=== PATIENT | male | born 1995 | race Caucasian/White ===

== ENCOUNTER 2024-12-02 04:11 | Emergency (ER) | payer BC, SELFPAY ==
[2024-12-02] VITALS (16 sets, daily range): BP systolic 102–151; BP diastolic 65–115; BMI 28.8
[2024-12-02 05:35] LABS: % Basophils 0.5 % (0-2); % Eosinophils 0.6 % (0-6); % Immature Granulocytes 0.2 % (0-0.5); % Lymphocytes 27.4 % (20.5-51.1); % Monocytes 6.6 % (1.7-9.3); % Neutrophils 64.7 % (42.2-75.2); Absolute Lymphocytes 1.7 10^3/uL (1.2-3.4); Absolute Monocytes 0.4 10^3/uL (0.1-0.6); Absolute Neutrophils 4.1 10^3/uL (1.4-6.5); Hematocrit 49.5 % (39.0-52.0); Hemoglobin 17.4 g/dL (13.0-18.0); Mean Corp Hgb Conc. 35.2 g/dL (33.0-37.0); Mean Corpuscular Hgb 28.6 pg (27.0-31.0); Mean Corpuscular Volume 81.4 fL (80.0-94.0); Mean Platelet Volume 9.6 fL (7.4-10.4); Nucleated Red Blood Cells % 0 % (-); Platelet Count 183 10^3/uL (130-400); Red Blood Cell Count 6.08 10^6/uL (4.70-6.10); Red Cell Dist. Width 12.5 % (11.5-14.5); White Blood Cell Count 6.3 10^3/uL (4.8-10.8)
[2024-12-02] MEDS: CARDIZEM 20 MG IV (05:44)
[2024-12-02] MEDS: NSS 1000 IV (05:45)
[2024-12-02] MEDS: CARDIZEM 125 IV (05:45)
[2024-12-02 05:59] LABS: ALT (SGPT) 33 U/L (0-50); AST (SGOT) 29 U/L (17-59); Alkaline Phosphatase 112 U/L (38-126); Blood Urea Nitrogen 13 mg/dl (9-20); Calcium 9.4 mg/dl (8.4-10.2); Carbon Dioxide 25 mmol/L (22-30); Chloride 112 mmol/L (98-107); Estimated Creatinine Clearance 113 ml/min; Glucose 98 mg/dl (70-99); Potassium 4.4 mmol/L (3.5-5.1); Sodium 146 mmol/L (135-145); Total Bilirubin 3.5 mg/dl (0.2-1.3); Total Protein 7.7 g/dl (6.3-8.2); eGFR > 60.00
--- NOTE | 2024-12-02 06:14 | ED.GENMED ---
History of Present Illness
<Edwige Lopez DO - Last Filed: 12/02/24 07:30>
General
Chief Complaint: Heart Rate Problem
Source: patient and spouse
Exam Limitations: none
Time Seen by Provider: 12/02/24 05:28
Nursing documentation reviewed up to this point in time: agreed with except (Palpitations began at 3:00 in the morning. Not 3 PM.)
History of Present Illness
History of Present Illness:
This is a 29-year-old gentleman who has history of PAF that began as a teenager. He follows with a routeman as well as an button maker. He takes no medicines on a daily basis. He states A-fib episodes are quite rare with last episode
approximately 2 years ago. A-fib episodes are generally short-lived, resolve within an hour. He has required previous ED visits and only 1 episode required IV medication to spontaneously convert. He has never required electrical cardioversion.
He complains of palpitations waking him from sleep around 3:00 this morning. No other associated symptoms. No dizziness nor lightheadedness, no chest pain, no cough no shortness of breath, no diaphoresis. Palpitations persisted thus he brought
himself to the ED.
Past History
<Edwige Lopez DO - Last Filed: 12/02/24 07:30>
Past History
ED Past Medical History: Arrthythmia (Paroxysmal atrial fibrillation since teenager)
ED Past Surgical History: Orthopedic
Social History
Tobacco: Non-smoker
Alcohol: Occasional
Drug: None
Personal: Single
Living: with family
Employment: Employed
Family History
Family History: Other (Noncontributory)
Phy Exam
<Edwige Lopez DO - Last Filed: 12/02/24 07:30>
Physical Exam
Physical Exam:
GENERAL: Alert , in no apparent distress
EYE: pupils equal and reactive
NECK: Supple, no significant adenopathy.
ENT: o/p clr, mmm.
CARDIAC: Irregularly irregular, tachycardic
LUNGS: Clear breath sounds bilaterally, no acute respiratory distress,
ABDOMEN: Soft, without focal tenderness, no r/g, no cvat
NEUROLOGICAL: Alert and oriented, no focal neuro deficits
SKIN: Warm and dry, skin intact.
MUSCULOSKELETAL: No edema, well perfused.
PSYCH: Normal and appropriate interaction.
Course
<Edwige Lopez, DO - Last Filed: 12/02/24 07:30>
Orders/Labs/Results
Orders:
Orders
12/02/24 04:12
EKG [Electrocardiogram (*1)] Urgent
Reason for Study: Palpitations
EKG- Treatment ONCE
12/02/24 04:26
Electrocardiogram (*1) Urgent
Reason for Study: Atrial Fibrillation
12/02/24 04:27
EKG- Treatment ONCE
12/02/24 05:20
Complete Blood Count/With Diff Urgent
Comprehensive Metabolic Panel Urgent
12/02/24 05:29
0.9% Sodium Chloride 1000 ml [Nss] 1,000 ml IV BOLUS
Diltiazem 125 mg/125 ml Nss [Cardizem] 125 mg in 125 ml IV NOW
Initial dose in mg/hr, then titrate:: 5
Titrate to keep:: Heart rate 80-100 bpm
Titrate by mg/hr:: 5 mg/hr
Frequency of titrations (minutes):: 15
Maximum dose in mg/hr:: 15
Diltiazem HCl [Cardizem] 20 mg IV NOW STA
12/02/24 06:36
Diltiazem HCl [Cardizem] 25 mg IV NOW STA
12/02/24 09:48
Diltiazem Extended Release [Cardizem Cd] 120 mg PO NOW STA
Abnormal Lab Results
12/02/24
05:20
Sodium 146 H mmol/L
(135-145)
Chloride 112 H mmol/L
(98-107)
Total Bilirubin 3.5 H mg/dl
(0.2-1.3)
12/02/24 05:20
12/02/24 05:20
Vital Signs
Initial and Last Documented VS:
Initial Vital Signs
Temp Pulse Resp BP Pulse Ox
98.3 F 162 20 150/91 100
12/02/24 04:18 12/02/24 04:18 12/02/24 04:18 12/02/24 04:18 12/02/24 04:18
Last Documented Vital Signs
Temp Pulse Resp BP Pulse Ox
98.3 F 97 15 109/76 99
12/02/24 04:18 12/02/24 12:00 12/02/24 12:00 12/02/24 11:00 12/02/24 12:00
simeon;Celestine Benson DO - Last Filed: 12/06/24 22:51>
Orders/Labs/Results
Orders:
Orders
12/02/24 04:12
EKG [Electrocardiogram (*1)] Urgent
Reason for Study: Palpitations
EKG- Treatment ONCE
12/02/24 04:26
Electrocardiogram (*1) Urgent
Reason for Study: Atrial Fibrillation
12/02/24 04:27
EKG- Treatment ONCE
12/02/24 05:20
Complete Blood Count/With Diff Urgent
Comprehensive Metabolic Panel Urgent
12/02/24 05:29
0.9% Sodium Chloride 1000 ml [Nss] 1,000 ml IV BOLUS
Diltiazem 125 mg/125 ml Nss [Cardizem] 125 mg in 125 ml IV NOW
Initial dose in mg/hr, then titrate:: 5
Titrate to keep:: Heart rate 80-100 bpm
Titrate by mg/hr:: 5 mg/hr
Frequency of titrations (minutes):: 15
Maximum dose in mg/hr:: 15
Diltiazem HCl [Cardizem] 20 mg IV NOW STA
12/02/24 06:36
Diltiazem HCl [Cardizem] 25 mg IV NOW STA
12/02/24 09:48
Diltiazem Extended Release [Cardizem Cd] 120 mg PO NOW STA
Abnormal Lab Results
12/02/24
05:20
Sodium 146 H mmol/L
(135-145)
Chloride 112 H mmol/L
(98-107)
Total Bilirubin 3.5 H mg/dl
(0.2-1.3)
12/02/24 05:20
12/02/24 05:20
Vital Signs
Initial and Last Documented VS:
Initial Vital Signs
Temp Pulse Resp BP Pulse Ox
98.3 F 162 20 150/91 100
12/02/24 04:18 12/02/24 04:18 12/02/24 04:18 12/02/24 04:18 12/02/24 04:18
Last Documented Vital Signs
Temp Pulse Resp BP Pulse Ox
98.3 F 97 15 109/76 99
12/02/24 04:18 12/02/24 12:00 12/02/24 12:00 12/02/24 11:00 12/02/24 12:00
<Edwige Lopez, DO - Last Filed: 12/02/24 07:30>
MDM/Problems Addressed
Differential Diagnosis Includes:
Patient presents with palpitations and EKG notes atrial fibrillation with rapid ventricular response.
Hemodynamically stable and offers no other complaints other than feeling his heart racing.
Will initiate IV Cardizem bolus and drip for rate control and will continue to monitor. According to patient he generally spontaneously converts to normal sinus rhythm quite readily.
If he does not spontaneously convert despite controlling heart rate, could consider discontinuing Cardizem and trial of IV Pronestyl bolus.
Routine labs are pending.
Patient reports no history of thyroid disorder and follows with an button maker. No indication to test TSH at this point.
Chronic conditions affecting care: Arrhythmia
Acute Exacerbation and/or Progression of Chronic Illness: Arrhythmia
<Edwige Lopez, DO - Last Filed: 12/02/24 07:30>
*Pulse Oximetry
Patient hypoxic: no
*EKG
Interpreted by ED Provider?: Yes
Interpretation: abnormal
Comparison EKG: no comparison EKG present
Rate: tachycardiac
Rhythm: a-fib
[place]: normal axis
Interval: normal QT interval
QRS Pattern: normal QRS
Ischemia: no ischemia
*Electric Operator Interpretation
Rate: tachycardiac
Interpretation: abnormal
Rhythm: a-fib
<Celestine Benson, DO - Last Filed: 12/06/24 22:51>
*Critical Care Note
Total Time (30-74mins, 75-104mins- exclusive of procedures): Not Applicable
<Edwige Lopez, DO - Last Filed: 12/02/24 07:30>
Update Note
Update Note:
07:15
Patient remains hemodynamically stable.
Cardizem bolus and drip initiated with additional bolus and titration of drip.
A-fib now with controlled ventricular response in the 80s.
Will continue to observe.
<Celestine Benson, DO - Last Filed: 12/06/24 22:51>
Update Note
Update Note:
07:15
Patient remains hemodynamically stable.
Cardizem bolus and drip initiated with additional bolus and titration of drip.
A-fib now with controlled ventricular response in the 80s.
Will continue to observe.
Ultimately patient did not convert to sinus rhythm. He did however have adequate rate control. He was converted from IV Cardizem to oral Cardizem. I discussed patient's presentation with Dr. Emilee Jackson. Will have the patient follow-up with
electrophysiology here at [facility].
ED Attending Note
<Edwige Lopez DO - Last Filed: 12/02/24 07:30>
-
Portions of this chart may have been created with voice recognition software.� Occasional wrong word or��sound alike� substitutions may have occurred due to the inherent limitations of voice recognition software.
Discharge Plan
Departure
Patient Disposition: Home (Routine Discharge)
Date of Disposition: 12/02/24
Time of Disposition: 12:11
Patient with high blood pressure during this ER visit?: No
Condition: Good
Discharge Problem:
Paroxysmal atrial fibrillation with rapid ventricular response
Instructions: Atrial Fibrillation (DC)
Prescriptions:
New
diltiazem HCl [Cardizem CD] 120 mg capsule,extended release 24hr
120 mg PO DAILY Qty: 30 0RF
Referrals:
Sima Schulz MD [Active, Cardiology]
Sanjuana Guerra DO [Family Provider, Family Practice]
Activity Restrictions/Additional Instructions:
You came to the emergency room today with a rapid heart rate and you were found to have atrial fibrillation. We have controlled your heart rate with Cardizem. We anticipate you will convert to normal sinus rhythm in the next couple days. Please
contact Dr. Schulz's office today to make an appointment. Let the office staff know you were seen in the emergency room for atrial fibrillation and that you need an appointment with Dr. Schulz. I have sent a prescription for Cardizem which she
can take once a day.
Interventions
Interventions:
*Risk Screen - Suicide Last Done: 12/02/24 04:18
*General Assessment Last Done: 12/02/24 04:18
*Neglect/Abuse Screening Last Done: 12/02/24 04:18
*ED- Fall Risk Assessment Last Done: 12/02/24 04:31
*ED COVID-19 Vaccine History Last Done: 12/02/24 04:18
*Nursing Disposition Last Done: 12/02/24 12:30
ED- Cardiac Assessment Last Done: 12/02/24 05:31
ED- Pulmonary Assessment Last Done: 12/02/24 05:31
Discharge Date and Time
Discharge Date/Time: 12/02/24 12:30
Print Language: ESTONIAN
[2024-12-02] MEDS: CARDIZEM 25 MG IV (07:00)
--- NOTE | 2024-12-02 09:22 | EDRN ---
Dr. Benosn in room w/ pt at this time.
[2024-12-02] MEDS: CARDIZEM CD 120 MG PO (10:06)
--- NOTE | 2024-12-02 10:57 | EDRN ---
Pt remains in A Fib. At 9:[address] Benson that cardizem was discontinued per plan of doing so 30 min after pt was administered cardizem po.
--- NOTE | 2024-12-02 11:50 | EDRN ---
Pt remains in A Fib w/ rate in the 90's at this time.
== END 2024-12-02 12:30 | disposition home or self-care (01) ==
LOC: EMR 04:11
PROVIDERS: EMERGENCY PHYSICIAN Emergency Medicine; FAMILY PHYSICIAN Family Medicine
DX: I48.0 Paroxysmal atrial fibrillation (principal)
CPT/HCPCS: 99284; 96374; 96361; 96376; 80053; 85025; 93005

== ENCOUNTER 2024-12-30 11:05 | Day surgery (SDC) | payer BC, SELFPAY ==
[2024-12-13 12:44] VITALS: BMI 27.7
[2024-12-30] VITALS (11 sets, daily range): BP systolic 100–151; BP diastolic 59–86; BMI 28.0
[2024-12-30 15:45] LABS: ACT-LR - POC 366 Seconds (116-155)
[2024-12-30 16:00] LABS: ACT-LR - POC 345 Seconds (116-155)
[2024-12-30 16:22] LABS: ACT-LR - POC 343 Seconds (116-155)
--- NOTE | 2024-12-30 16:29 | ITS.CL.ABL ---
Emotional Disabilities Teacher - Ablation
Ablation
Procedure Report:
AFIB ablation:
Mr. Aragon is a very pleasant 29 yr old gentleman with medical history significant for symptomatic paroxysmal atrial fibrillation is here in the EP lab for atrial fibrillation ablation
Date of Procedure:
12/30/2024
Indications:
Symptomatic paroxysmal atrial fibrillation
Pre-Operative Diagnosis:
Paroxysmal atrial fibrillation
Post-Operative Diagnosis:
Paroxysmal atrial fibrillation
Procedure Performed:
Atrial fibrillation ablation with wide area circumferential ablation (WACA) approach for pulmonary vein isolation
Performing Physician:
Sima Schulz MD
Assistants:
EP staff
Anesthesia:
See anesthesia records
Detailed Description of the Procedure:
Written informed consent was obtained from the patient after a full explanation of the risks and benefits of the procedure including the risks of sedation and anesthesia.
The patient was brought to the electrophysiology laboratory in stable condition in fasting state. Continuous electrocardiographic and hemodynamic monitoring was initiated.
The initial rhythm was sinus rhythm.
The procedure site was meticulously prepared with surgical scrub and allowed to dry with no pooling. Sterile draping was applied to cover the procedure site. The image intensifier was draped with sterile bag and positioned over the patient. After
infusion of local anesthetic, vascular access was obtained under ultrasound guidance and sheaths were placed over guide wire as detailed below.
The images of the ultrasound of the femoral vessels were stored in patient chart.
Sheath and Catheter Placement:
In the right femoral vein, a 10-Bel[place]ian sheath was placed under ultrasound guidance for use during the ablation procedure. In the right femoral vein, another 9-Fr sheath was placed for use during intracardiac echo procedure.
The sheaths were upgraded as needed during the case. Intracardiac catheters were positioned using direct fluoroscopic guidance.� ICE catheter was placed in RA. The following catheters / sheaths were placed
Sheaths:
��������� Agilis sheath in right femoral vein upgraded from 10Fr in right femoral vein
��������� 9Fr in right femoral vein
��������� 7Fr in right femoral vein
Catheters:
��������� The Affera Sphere 9 catheter -bidirectional D/F� - at locations of HRA, LA and LV.
��������� ICE catheter -AccuNav -� at locations of RA, SVC, and RV.
��������� Decapolar catheter in RA and CS
Heparin was initiated after the access was obtained.
Intracardiac ECHO:
An 8-[place]ian AcuNav intracardiac ECHO (ICE) probe was advanced through the 9-[place]ian sheath in the left femoral vein into the right atrium under fluoroscopic and ICE ultrasound image guidance and a baseline ECHO study was performed. The left atrial
size was mildly dilated. There was trace tricuspid regurgitation. The aortic valve was grossly normal. There was normal left ventricular size and function. There is no pericardial effusion. The MEIR has baseline normal velocities. The pulmonary had
good flow identified.
During the procedure, ICE was used for monitoring of complications, guidance of trans-septal puncture, monitor the catheter position and tracking ablation lesions. No change in the pericardial space noted throughout the procedure.
Trans-septal Puncture:
Heparin was initiated and infused to maintain appropriate ACT. A J-tipped guidewire was advanced through into the superior vena cava under fluoroscopic and ICE guidance. The Agilis sheath with BRK needle was advanced into the superior vena cava over
the guidewire. The apparatus was withdrawn until it was in contact with the fossa ovalis. The position was adjusted based on fluoroscopy and ultrasound images from ICE. Under fluoroscopic, hemodynamic and ICE ultrasound guidance, left atrium was
cannulated by advancing the needle. Once atrial septum was cannulated, the needle was pulled back and the guide wire was advanced through the needle into the left atrium. The guide wire was advanced into the left superior pulmonary vein. Both the
sheath and the dilator was advanced into the left atrium. The dilator with the needle was withdrawn. Blood was aspirated from the Agilis sheath and arterial blood confirmed. The sheath was flushed. Saline injection noted into the left atrium on ICE.
The waveform of the LA pressure was recorded. The mapping catheter was advanced in the Agilis sheath into the left pulmonary vein.
3D Electroanatomic Mapping:
Using the Sphere 9 Affera catheter advanced through Agilis sheath into the left atrium, an electroanatomic map (EAM) of the left atrium was created using XMLAWa� mapping system with Prism-1 software. The map was used for localization of catheter
position and tacking of ablation lesions. The EAM of the left atrium showed a total of 4 PVs with a two left and two right sided pulmonary veins with all electrically connected to the body the LA. It showed no significant scar on the posterior wall
of the LA. The LA was dilated in size.
Following the EAM, preparation were made for ablation.
Ablation:
Ablation # 2: Pulmonary vein Isolation:
Glycopyrrolate 0.2 mg was given prior to the placement of ablation.
Pulsed field ablation was performed using an open irrigation, bidirectional, contact sensing, dual energy ablation catheter ([employer] sphere -9) by completing the circumferential lesions around the left and right pulmonary veins achieving pulmonary
vein isolation.
Confirmation of the PVI and bidirectional block:
Following achievement of entrance block at the pulmonary veins, pacing from the Sphere 9 affera catheter in each of the four veins at 20 milliamps for 4 milliseconds showed entrance and exit block.
The LA was mapped with The XMLAWa� mapping system with Prism-1 software in sinus rhythm confirming the line of block at the ablation lesions lines.
�
EP study:
Sinus Node Function: The sinus node functions are within acceptable normal range.
Atrioventricular Kimberli Function: �Normal AV conduction noted with normal AV kimberli conduction time.
The RV pacing showed concentric conduction. No sign of accessory pathway noted. No SVT induced.
Procedure End
ICE study was done again that showed no epicardial accumulation. No complications noted.
Following the completion of the EP study, catheters were removed. Protamine 40 mg was given at the end of the procedure and ACT was checked repeatedly. The sheaths were removed and hemostasis achieved with VASCADE and manual compression after
acceptable ACT is achieved.
Left atrial Pressure:
Pre-Procedure: Mean LA pressure was 9mmHg
Post-Procedure: Mean LA pressure was 11mmHg
Estimated Blood loss:
<10 cc
Specimens Removed:
None.
Implants / Devices:
None
Urine output:
None
Packs / Drains/ Tubes:
None
Instrument / Sponge Count Correct:
Yes
Complications of the Procedure:
None
Condition of Patient at Time of Transfer:
Hemodynamically stable with no neurological or vascular compromise.
Summary:
��������� Successful atrial fibrillation ablation with circumferential bidirectional line of block at pulmonary vein antra (Pulmonary vein isolation)
Figures from the Procedure:
Figure 1: The electroanatomic mapping (EAM) of the left atrium with bipolar voltage (purple indicates normal electrical activity with red as no myocardial muscle electric activity indicating a line of block or scar.
[2024-12-30] MEDS: ZOFRAN 4 MG IV (17:33)
== END 2024-12-30 17:15 | disposition home or self-care (01) ==
LOC: CATH 11:05
PROVIDERS: ATTENDING PHYSICIAN Internal Medicine Cardiovascular Disease; FAMILY PHYSICIAN Family Medicine
DX: I48.0 Paroxysmal atrial fibrillation (principal); R00.2 Palpitations; R06.02 Shortness of breath
CPT/HCPCS: 93655; C1733; C1769; C1894; C1730; C1766; C1892; C1759; 36415; 85347; 86850; 86900; 86901; 93005; 93656; 93657; C1760

== ENCOUNTER → 2025-01-04 07:47 | Outpatient (REF) | payer BC, SELFPAY | LOC: RCS 07:47 | PROVIDERS: ATTENDING PHYSICIAN Internal Medicine Cardiovascular Disease; FAMILY PHYSICIAN Family Medicine | DX: R00.2 Palpitations (principal); I48.0 Paroxysmal atrial fibrillation | CPT/HCPCS: 93306 ==

== ENCOUNTER 2025-05-03 22:38 | Emergency (ER) | payer BC, SELFPAY ==
[2025-05-03 22:44] VITALS: BP 174/103
[2025-05-03 23:12] VITALS: BMI 27.9
[2025-05-03 23:15] VITALS: BP 125/82
[2025-05-03 23:29] LABS: Hematocrit 47.2 % (39.0-52.0); Hemoglobin 16.2 g/dL (13.0-18.0); Mean Corp Hgb Conc. 34.3 g/dL (33.0-37.0); Mean Corpuscular Volume 80.7 fL (80.0-94.0); Nucleated Red Blood Cells % 0 % (-); Platelet Count 172 10^3/uL (130-400); Red Cell Dist. Width 13.0 % (11.5-14.5)
[2025-05-03 23:31] LABS: ALT (SGPT) 56 U/L (0-50); AST (SGOT) 50 U/L (17-59); Albumin 5.2 g/dl (3.5-5.0); Alkaline Phosphatase 98 U/L (38-126); Blood Urea Nitrogen 13 mg/dl (9-20); Calcium 9.6 mg/dl (8.4-10.2); Carbon Dioxide 25 mmol/L (22-30); Chloride 105 mmol/L (98-107); Estimated Creatinine Clearance > 125 ml/min; Glucose 126 mg/dl (70-99); Potassium 3.7 mmol/L (3.5-5.1); Sodium 142 mmol/L (135-145); Total Protein 8.0 g/dl (6.3-8.2); eGFR > 60.00
[2025-05-03 23:41] LABS: Troponin I < 0.012 ng/ml
[2025-05-04] VITALS: BP 120/84
--- NOTE | 2025-05-04 01:05 | ED.GENMED ---
History of Present Illness
General
Chief Complaint: Heart Rate Problem
Time Seen by Provider: 05/04/25 00:28
History of Present Illness
History of Present Illness:
29-year-old male with past medical history of A-fib status post ablation in December presenting to the emergency department for concern of episode of atrial fibrillation. Patient reports that it woke him up from sleep. He has not had any episodes of
atrial fibrillation since his recent ablation. Reports by the time he got to the hospital, feels that he converted to sinus rhythm. He takes Cardizem daily, however is off Eliquis. Denies associated chest pain or difficulty breathing. Denies
abdominal pain or GI symptoms. Denies fever or recent illness. Patient follows with Dr. Schulz from cardiology. Patient denies additional acute medical complaints
Past History
Past History
ED Past Medical History: Arrthythmia (Paroxysmal atrial fibrillation since teenager)
ED Past Surgical History: Orthopedic
Social History
Tobacco: Non-smoker
Alcohol: Occasional
Drug: None
Personal: Single
Living: with family
Employment: Employed
Family History
Family History: Other (Noncontributory)
Phy Exam
Physical Exam
Physical Exam:
General: Well-appearing, no clinical signs of dehydration, nontoxic and in no acute distress
HEENT: protecting airway
Neck: appears supple
CV: Normal heart rate, regular rhythm, no evidence of cyanosis
Resp: No accessory muscle use, no increased work of breathing, lungs clear to auscultation bilaterally
Abd: No distention
Extremities: No deformities, no swelling
Neuro: alert, no focal neurologic deficit
: deferred
Rectal: deferred
Psych: Normal affect
Skin: Intact
Scores
[id number] Score for Afib Stroke Risk
Age in Years (65=0, 65-74=1, >/=75=2): <65
Sex (Female=+1): Male
Congestive Heart Failure History (Yes=+1): No
Hypertension History (Yes=+1): No
Stroke/TIA/Thromboembolism History (Yes=+2): No
Vascular Disease History (Yes=+1): No
Diabetes Mellitus (Yes=+1): No
Score: 0
Anticoagulation Recommendations: Anticoagulation not indicated (as validated in nonvalvular afib). Consider anticoagulation irrespective of score in patients with HCM
Course
Orders/Labs/Results
Orders:
Orders
05/03/25 22:39
Electrocardiogram (*1) Urgent
Reason for Study: Other
Other Reason for Exam: Respiratory Distress
Cardiac Monitoring- Treatment ONCE
EKG- Treatment ONCE
IV Insert/Care/Rem.- Treatment PRN
CR Chest - 2 Views Urgent
Comment:
Reason For Exam: respiratory distress
O2 Therapy [RESP] Urgent
Titrate/Wean O2 to maintain O2 sat greater than (%): 93
Special Instructions: TO MAINTAIN CONTINUOUS O2 SATS >/= 93%
Pulse Ox/cont/shift [RESP] Urgent
Quantity: 1
Special Instructions: continuous pulse ox
05/03/25 23:05
Comprehensive Metabolic Panel Urgent
NT-proBNP Urgent
Troponin I Urgent
05/03/25 23:21
Complete Blood Count/With Diff Urgent
05/04/25 00:43
EKG [Electrocardiogram (*1)] Urgent
Reason for Study: Atrial Fibrillation
EKG- Treatment ONCE
Abnormal Lab Results
05/03/25
23:05
Glucose 126 H mg/dl
(70-99)
Total Bilirubin 3.3 H mg/dl
(0.2-1.3)
ALT 56 H U/L
(0-50)
Albumin 5.2 H g/dl
(3.5-5.0)
05/03/25 23:21
11/04/25 23:05
Vital Signs
Initial and Last Documented VS:
Initial Vital Signs
Temp Pulse Resp BP Pulse Ox
98.2 F 100 19 174/103 100
05/03/25 22:44 05/03/25 22:44 05/03/25 22:44 05/03/25 22:44 05/03/25 22:44
Last Documented Vital Signs
Temp Pulse Resp BP Pulse Ox
98.2 F 87 10 120/84 100
05/03/25 22:44 05/04/25 00:45 05/03/25 23:16 05/04/25 00:00 05/04/25 01:07
MDM/Problems Addressed
MDM/Problems Addressed:
29-year-old male with past medical history of atrial fibrillation status post ablation in December presenting for episode of A-fib. Vital signs on arrival significant for tachycardia and hypertension.
On exam, patient has converted to sinus rhythm, without any intervention. Blood pressure is also normalized. Repeat EKG shows normal sinus rhythm without acute evidence of ischemia. Labs obtained prior to my assessment, unremarkable. Normal
chest x-ray imaging. Patient currently with unremarkable cardiac and pulmonary exam and hemodynamic stability. Patient with a low [id number] 4, without current indication for Eliquis, particularly in the setting of normal sinus rhythm. Patient
has an appoint with his EP doctor on Friday. At this time feel stable for discharge with close follow-up with his commissioning engineer. Return precautions discussed and patient verbalized
*Pulse Oximetry
SaO2: 100
Oxygen Mode of Delivery: Room air
Patient hypoxic: no
*EKG
Interpreted by ED Provider?: Yes
EKG Intrepretation Date: 05/04/25
EKG Intrepretation Time: 01:10
Interpretation: abnormal
Comparison EKG: changes noted
Heart Rate: 169
Rate: tachycardiac
Rhythm: a-fib
[place]: normal axis
QRS Pattern: normal QRS
Ischemia: non-specific ST changes
*Critical Care Note
Total Time (30-74mins, 75-104mins- exclusive of procedures): Not Applicable
ED Attending Note
-
Portions of this chart may have been created with voice recognition software.� Occasional wrong word or��sound alike� substitutions may have occurred due to the inherent limitations of voice recognition software.
Discharge Plan
Departure
Patient Disposition: Home (Routine Discharge)
Date of Disposition: 05/04/25
Time of Disposition: 01:06
Patient with high blood pressure during this ER visit?: No
Condition: Good
Discharge Problem:
Atrial fibrillation
Instructions: Atrial Fibrillation (DC)
Prescriptions:
No Action
diltiazem HCl [Cardizem CD] 120 mg capsule,extended release 24hr
120 mg PO DAILY Qty: 30 0RF
Eliquis 5 mg Tablet
5 mg PO BID
Referrals:
Sima Schulz MD [Active, Cardiology]
Sanjuana Guerra DO [Family Provider, Family Practice]
Activity Restrictions/Additional Instructions:
You were seen in the emergency department for elevated heart rate
You were found to have atrial fibrillation, however converted to normal sinus rhythm without any medication. Please follow-up with your commissioning engineer.
Please follow-up closely with your primary care physician.
Return to the emergency department for any worsening of your symptoms, or any development of chest pain, difficulty breathing, abdominal pain with persistent vomiting and inability to tolerate food or liquid by mouth (concern for dehydration),
weakness, headache or confusion, fever greater than 100.4, or any additional symptoms that are concerning to you.
Thank you for choosing [facility].
Interventions
Interventions:
*Risk Screen - Suicide Last Done: 05/03/25 22:50
*General Assessment Last Done: 05/03/25 22:50
*Neglect/Abuse Screening Last Done: 05/03/25 22:50
*ED- Fall Risk Assessment Last Done: 05/03/25 23:13
*ED COVID-19 Vaccine History Last Done: 05/03/25 22:50
*ED Influenza Vaccine History Last Done: 05/03/25 22:50
ED- Cardiac Assessment Last Done: 05/03/25 23:14
ED- Pulmonary Assessment Last Done: 05/03/25 23:14
Discharge Date and Time
Print Language: TURKISH
== END 2025-05-04 01:22 | disposition home or self-care (01) ==
LOC: EMR 22:38
PROVIDERS: Student in an Organized Health Care Education/Training Program; EMERGENCY PHYSICIAN Student in an Organized Health Care Education/Training Program; FAMILY PHYSICIAN Family Medicine
DX: I48.0 Paroxysmal atrial fibrillation (principal)
CPT/HCPCS: 99284; 71046; 80053; 83880; 84484; 85025; 93005